=== PATIENT | male | born 1945 | race Caucasian/White ===

== ENCOUNTER 2017-07-13 06:32 | Day surgery (SDC) | payer MEDICARE, MEDICAID ==
[~2017-07-13 06:32] MED LIST: Dextrose 5%-0.45% NaCl 1,000 ML IV SCH; Sodium Chloride 0.9% 10 ML Syringe FLUSH PRN
[2017-07-13] MEDS ORDERED: Propofol 200 MG/20 ML SDV IV ONE (06:33)
--- NOTE | 2017-07-13 08:13 | OR ---
DATE: 07/13/2017 PROCEDURE: Esophagogastroduodenoscopy and multiple pinch biopsies. INSTRUMENT USED: GIF-H180 Olympus video panendoscope. PREMEDICATIONS: No oral or topical anesthesia used. Sedation provided by [facility]. INDICATION: The patient with persistent abdominal pain, unexplained, and not responsive to medical measures, on high-dose PPI. Esophagogastroduodenoscopy is performed for detection of any active erosive lesions, Tsang esophagus, and/or malignancy also under consideration, H. pylori status to be determined, endoscopic hemostasis therapy if needed. DESCRIPTION OF PROCEDURE: The scope was passed with ease. Adequate visualization of the esophagus was made from proximal to distal areas. No upper esophageal lesions identified. No distal esophageal stricture. No uphill or downhill esophageal varices. No Maxine-Sorto tear. No evidence of erosive esophagitis by [place] criteria. No esophageal polyp or tumor mass identified. Z-line was seen at around 40 cm distal to the oral verge, configuration consistent with grade 1 by ZAP classification. No proximal gastric varices noted. Gastric fundus examination by retroflexion showed no polypoid lesions. No gastric ulcer, malignant mass, or vascular ectasia identified. Duodenal bulb showed no ulcer. Visualized second part of the duodenum was unremarkable. Multiple pinch biopsies were taken from the gastric antrum and proximal body and sent for PyloriTek test for H. pylori, and if negative in an hour, the tissue is to be sent for histopathology. No bleeding was noted from any of the visualized areas at the completion of examination. Photographs were taken of the duodenal bulb, gastric antrum, fundus, and distal esophagus. IMPRESSION: Normal study. The patient tolerated the procedure well. [facility] /[id number]
[2017-07-13 09:57] VITALS: BP 147/79
--- NOTE | 2017-07-15 12:19 | EKG ---
07/13/2017 - ANA NASH - FINDINGS: A 12-lead EKG shows normal sinus rhythm with heart rate of 75. No significant ST elevation or ST depression noted on this 12-lead EKG. Nonspecific ST-T wave changes noted on the lateral leads from V2, V3, V4, V5, and V6, nonspecific changes. [facility] /[id number]
== END 2017-07-13 09:20 | disposition home or self-care (01) ==
LOC: DL.ENDO 06:32
PROVIDERS: ATTEND Internal Medicine Gastroenterology
DX: R10.9 Unspecified abdominal pain (principal); I10 Essential (primary) hypertension; E78.5 Hyperlipidemia, unspecified; G47.30 Sleep apnea, unspecified; N40.0 Benign prostatic hyperplasia without lower urinary tract symptoms; E66.9 Obesity, unspecified; R73.9 Hyperglycemia, unspecified
CPT/HCPCS: 43239; 87077; 93005; 93010; J2704; J7042; 00731

== ENCOUNTER 2017-07-16 06:49 | Day surgery (SDC) | payer MEDICARE, MEDICAID ==
[~2017-07-16 06:49] MED LIST changes: -Dextrose 5%-0.45% NaCl 1,000 ML IV SCH; +Midazolam 1 MG/ML 2 ML SDV ONE; -Sodium Chloride 0.9% 10 ML Syringe FLUSH PRN; +fentaNYL 100 MCG/2 ML SDV ONE
[2017-07-16] MEDS ORDERED: Propofol 200 MG/20 ML SDV IV ONE (06:50)
[2017-07-16] MEDS ORDERED: Midazolam 1 MG/ML 2 ML SDV IV ONE (06:50)
[2017-07-16] MEDS ORDERED: Dextrose 5%-0.45% NaCl 1,000 ML IV SCH (08:30)
[2017-07-16 10:17] VITALS: BP 133/76
--- NOTE | 2017-07-16 14:47 | OR ---
DATE: 07/16/2017 PROCEDURE: Total colonoscopy. INSTRUMENT USED: CF-H180AL Olympus video colonoscope. PREMEDICATIONS: Provided by Anest[facility]iology [facility]. INDICATION: The patient with persistent abdominal pain, unexplained, and not responsive to medical measures. Has intellectual disability. Colonoscopic examination is done for detection of any polypoid lesions and removal, endoscopic hemostasis therapy if needed. DESCRIPTION OF PROCEDURE: Initial rectal exam was unremarkable. Rigid anoscopy was normal. The colonoscope was passed with ease. Scattered diverticula were noted, more so in the distal left colon. The scope was passed with relative ease up to the ileocecal area, photographs were taken of the normal-appearing cecum identified by landmarks of appendiceal orifice and double bulged ileocecal folds. The colon was found to be tortuous and redundant, examined the colon. No bleeding was noted from any of the visualized areas at the commencement of the examination. No stricture. No vascular ectasia. No large isolated ulcerations seen. No evidence of diffuse inflammatory bowel disease in the form of friability, contact bleeding, or ulcerations. No polyp or tumor mass identified. Probing the proximal sides of folds and flexures, using adequate distention and clearing of the stool material, withdrawal of the scope was made, cecum to rectum time over 6 minutes. No bleeding was noted from any of the visualized areas at the completion of examination. IMPRESSION: Diverticulosis. The patient tolerated the procedure well. [facility] /[id number]
== END 2017-07-16 10:37 | disposition home or self-care (01) ==
LOC: DL.ENDO 06:49
PROVIDERS: ATTEND Internal Medicine Gastroenterology
DX: K57.30 Diverticulosis of large intestine without perforation or abscess without bleeding (principal); R10.9 Unspecified abdominal pain; F42.9 Obsessive-compulsive disorder, unspecified; I10 Essential (primary) hypertension; G40.909 Epilepsy, unspecified, not intractable, without status epilepticus; G47.30 Sleep apnea, unspecified; E66.09 Other obesity due to excess calories; L30.9 Dermatitis, unspecified; E78.5 Hyperlipidemia, unspecified; F79 Unspecified intellectual disabilities; R73.9 Hyperglycemia, unspecified; Z79.899 Other long term (current) drug therapy
CPT/HCPCS: 00812; 45378; J2250; J2704; J7042

== ENCOUNTER 2019-06-08 13:26 | Emergency (ER) | payer MEDICARE, MEDICAID ==
[2019-06-08 14:09] VITALS: BP 125/69; PULSE 80
--- NOTE | 2019-06-08 16:20 | EDM.PDOC ---
Scribed by Nat Mckeon 06/08/19 0355 for Melissa Spring NP ED HPI GENERAL MEDICAL PROBLEM - General Chief Complaint: Upper Extremity Injury/Pain Stated Complaint: ARM IS HURTING Time Seen by Provider: 06/08/19 16:09 Source of Information: Reports: Patient, Family, RN, RN Notes Reviewed History Limitations: Reports: No Limitations - History of Present Illness INITIAL COMMENTS - FREE TEXT/NARRATIVE: Patient is a 74-year-old male who presents to ED with tube bender hand with complaints of falling x5 minutes ago. Patient was reported to be going to his apartment, slipped on ice on the curb and fell on his right shoulder. Denies hitting his head or loss of consciousness. He complained of left shoulder pain. Patient is a poor historian. He is supervised by tube bender hand. No pain modalities implemented. Onset: Today Duration: Constant Location: Reports: Lower Extremity, Left Quality: Reports: Ache Severity: Mild Improves with: Reports: None Worsens with: Reports: None Associated Symptoms: Reports: No Other Symptoms Left Arm Pain Score (Numeric/FACES): 6 - Related Data Allergies Allergy/AdvReac Type Severity Reaction Status Date / Time No Known Allergies Allergy Verified 07/16/17 07:43 Home Meds: Home Meds Carbamide Peroxide [Debrox] 6 drop EARBOTH .TUESBID 11/17/13 [History] Doxazosin [Doxazosin Mesylate] 1 mg PO BEDTIME 11/17/13 [History] FLUoxetine [PROzac] 20 mg PO DAILY 11/17/13 [History] Fenofibrate Nanocrystallized [Tricor] 48 mg PO DAILY 11/17/13 [History] Fluticasone Propionate [Cutivate 0.05% Crm] 1 spray NASBOTH DAILY 11/17/13 [ History] Gabapentin [Neurontin] 300 mg PO TID 11/17/13 [History] LORazepam [Ativan] 1 mg PO BEDTIME 11/17/13 [History] Lisinopril 10 mg PO DAILY 11/17/13 [History] OXcarbazepine [Trileptal] 600 mg PO BID 11/17/13 [History] Simvastatin [Zocor] 20 mg PO BEDTIME 11/17/13 [History] risperiDONE [RisperiDAL ODT] 1 mg PO DAILY 11/17/13 [History] LORazepam 0.5 mg PO DAILY 07/13/17 [History] Omeprazole 20 mg PO DAILY 07/13/17 [History] risperiDONE 0.5 mg PO BEDTIME 07/13/17 [History] Folic Acid 1 mg PO BEDTIME 07/16/17 [History] Melatonin 3 mg PO BEDTIME 07/16/17 [History] Past Medical History HEENT History: Reports: None Cardiovascular History: Reports: High Cholesterol, Hypertension Respiratory History: Reports: Sleep Apnea Gastrointestinal History: Reports: Diverticulosis, GERD Genitourinary History: Reports: BPH Musculoskeletal History: Reports: Arthritis Neurological History: Reports: Seizure Psychiatric History: Reports: Bipolar, OCD, Other (See Below) Other Psychiatric History: intellectual disability Endocrine/Metabolic History: Reports: Obesity/BMI 30+ Hematologic History: Reports: Anemia Immunologic History: Reports: None Oncologic (Cancer) History: Reports: None Dermatologic History: Reports: Eczema - Infectious Disease History Other Infectious Disease History: UNCERTAIN - Past Surgical History Head Surgeries/Procedures: Reports: None HEENT Surgical History: Reports: Oral Surgery Cardiovascular Surgical History: Reports: None Respiratory Surgical History: Reports: None GI Surgical History: Reports: Colonoscopy, EGD Musculoskeletal Surgical History: Reports: None Social & Family History - Family History Family Medical History: Noncontributory - Tobacco Use Smoking Status *Q: Never Smoker - Caffeine Use Caffeine Use: Reports: None - Recreational Drug Use Recreational Drug Use: No Review of Systems - Review of Systems Review Of Systems: Comprehensive ROS is negative, except as noted in HPI. ED EXAM, GENERAL - Physical Exam Exam: See Below Exam Limited By: No Limitations General Appearance: Alert, WD/WN, No Apparent Distress Respiratory/Chest: No Respiratory Distress, Lungs Clear, Normal Breath Sounds, No Accessory Muscle Use, Chest Non-Tender Cardiovascular: Normal Peripheral Pulses, Regular Rate, Rhythm, No Edema, No Gallop, No JVD, No Murmur, No Rub Extremities: Normal Inspection, Normal Range of Motion, Non-Tender, Normal Capillary Refill, Other (good range of motion on the left shoulder. Negative drop arm test. No pain reported with palpation. ) Neurological: Alert Psychiatric: Normal Affect, Normal Mood Skin Exam: Warm, Intact Course - Vital Signs Last Recorded V/S: Last Vital Signs Temp 97.6 F 06/08/19 14:08 Pulse 80 06/08/19 14:08 Resp 16 06/08/19 14:08 BP 125/69 06/08/19 14:08 Pulse Ox 96 06/08/19 14:08 - Radiology Interpretation Free Text/Narrative:: Left shoulder x-ray: No evidence of acute fracture. There are mild degenerative changes of the glenohumeral joint. No evidence of acute dislocation. See rad report. - Re-Assessments/Exams Free Text/Narrative Re-Assessment/Exam: Exam findings and x-ray reviewed with patient and tube bender hand. Encouraged to apply ice for 20 minutes on and off. Follow up with PCP if not improved. Departure - Departure Time of Disposition: 16:19 Disposition: Home, Self-Care 01 Condition: Good Clinical Impression: Left shoulder pain Qualifiers: Chronicity: acute Qualified Code(s): M25.512 - Pain in left shoulder Fall Qualifiers: Encounter type: initial encounter Qualified Code(s): W19.XXXA - Unspecified fall, initial encounter - Discharge Information Instructions: Shoulder Pain, [id number] Forms: ED Department Discharge Additional Instructions: Encouraged to apply ice for 20 minutes on and off. Follow up with PCP if not improved. Sepsis Event Note - Evaluation Sepsis Screening Result: No Definite Risk - Focused Exam Vital Signs: Vital Signs Temp Pulse Resp BP Pulse Ox 06/08/19 14:08 97.6 F 80 16 125/69 96 Date Exam was Performed: 06/08/19 Time Exam was Performed: 16:20 I have read and agree with the documentation that has been completed regarding this visit. By signing this record, I attest that the documentation was completed in my physical presence and is an accurate record of the encounter.
== END 2019-06-08 16:26 | disposition home or self-care (01) ==
LOC: DL.ED 13:26
DX: M25.512 Pain in left shoulder (principal); I10 Essential (primary) hypertension; Z79.899 Other long term (current) drug therapy; W19.XXXA Unspecified fall, initial encounter
CPT/HCPCS: 73030-LT; 99282; 99283-25

== ENCOUNTER 2020-07-10 17:25 | Emergency (ER) | payer MEDICARE, MEDICAID ==
[2020-07-10 17:29] VITALS: BP 146/91; PULSE 75
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
--- NOTE | 2020-07-10 18:12 | CR ---
PROCEDURE INFORMATION: Exam: XR Chest Exam date and time: 07/10/2020 5:44 PM Age: 75 years old Clinical indication: Other: Possible aspiration; Additional info: Near choking TECHNIQUE: Imaging protocol: XR of the chest Views: 2 views. COMPARISON: CR CHEST PA/LAT 09/20/2007 7:56 AM FINDINGS: Lungs: There is minor nonspecific patchy linear density at right lung base which could be atelectatic, or inflammatory. There is minor nonspecific patchy linear density at left lung base which could be atelectatic, or inflammatory. There is no evidence of pulmonary edema. Pleural spaces: No pleural effusion. No pneumothorax. Heart/Mediastinum: Mild cardiomegaly. Bones/joints: No acute bony findings are identified. IMPRESSION: Minor non-specific patchy linear density at both bases. These changes could be inflammatory or could reflect atelectasis.
== END 2020-07-10 18:22 | disposition home or self-care (01) ==
LOC: DL.ED 17:25
DX: R09.89 Other specified symptoms and signs involving the circulatory and respiratory systems (principal); E78.00 Pure hypercholesterolemia, unspecified; I10 Essential (primary) hypertension; K21.9 Gastro-esophageal reflux disease without esophagitis; E66.9 Obesity, unspecified; Z68.27 Body mass index [BMI] 27.0-27.9, adult; Z79.899 Other long term (current) drug therapy
CPT/HCPCS: 71046; 99282; 99284-25

== ENCOUNTER 2023-02-20 17:23 | Emergency (ER) | payer MEDICARE, MEDICAID ==
[2023-02-20 18:41] VITALS: BP 106/75; PULSE 63
== END 2023-02-20 18:41 | disposition home or self-care (01) ==
LOC: DL.ED 17:23
DX: S30.0XXA Contusion of lower back and pelvis, initial encounter (principal); S00.81XA Abrasion of other part of head, initial encounter; I10 Essential (primary) hypertension; E78.00 Pure hypercholesterolemia, unspecified; K21.9 Gastro-esophageal reflux disease without esophagitis; E66.9 Obesity, unspecified; Z79.899 Other long term (current) drug therapy; W18.11XA Fall from or off toilet without subsequent striking against object, initial encounter; Y92.009 Unspecified place in unspecified non-institutional (private) residence as the place of occurrence of the external cause
CPT/HCPCS: 72192; 99283